=== PATIENT | male | born 1985 | race Hispanic/Latino ===

== ENCOUNTER 2017-12-29 19:57 | Emergency (ER) | payer OTHER ==
[2017-12-29] MEDS ORDERED: KETOROLAC TROMETHAMINE 60 MG/2 ML VIAL ONE (21:07)
[2017-12-29] MEDS ORDERED: DEXAMETHASONE SOD PHOSPHATE 10MG/ML 1ML VIAL ONE (21:07)
== END 2017-12-29 21:25 | disposition home or self-care (01) ==
LOC: EDH 19:57
DX: M54.5 Low back pain (principal); Z87.891 Personal history of nicotine dependence
CPT/HCPCS: 96372 ×2; 99284; J1100; J1885

== ENCOUNTER 2022-08-27 07:54 | Emergency (ER) | payer OTHER ==
[~2022-08-27] VITALS: Ht 170.2 cm; Wt 176.9 kg
[2022-08-27 08:40] VITALS: BP 165/99
== END 2022-08-27 08:42 | disposition home or self-care (01) ==
LOC: EDH 07:54
DX: T16.1XXA Foreign body in right ear, initial encounter (principal); X58.XXXA Exposure to other specified factors, initial encounter; Y93.89 Activity, other specified; Y92.89 Other specified places as the place of occurrence of the external cause; Y99.8 Other external cause status

== ENCOUNTER 2025-10-27 05:54 | Emergency (ER) | payer BC, OTHER ==
[~2025-10-27] VITALS: Ht 170.2 cm; Wt 289.4 kg
--- NOTE | 2025-10-27 06:10 | ERN ---
ED Note History of Present Illness Stated Complaint: LEFT LEG PAIN, HX OF SCIATICA Chief Complaint: Knee Injury/Swelling Time Seen by MD: 05:57 Dictation: Patient is a 40-year-old male morbid obesity with a past medical history of sciatic pain, today presented to the ER complaining of left buttock pain radiating to the left foot. Patient stated that he had similar pains before, has not seen a physician for that. He has been trying to lose weight as well and do stretches at home. Allergies: Coded Allergies: No Known Allergies (Unverified Allergy, Unknown, 08/27/22) Home Meds Active Scripts Acetaminophen (Tylenol) 325 Mg Tablet, 1-2 TAB PO QIDP PRN for pain or fever for 7 Days, #40 TAB 0 Refills Prov:TING FERNANDEZ MD 10/27/25 Ibuprofen (Ibuprofen) 600 Mg Tablet, 600 MG PO Q6H PRN for PAIN, #40 TAB Prov:TING FERNANDEZ MD 10/27/25 Past Medical History Past Medical History: No Pertinent History Surgical History: None Family History: Negative Social History: Negative, Lives with family Review of System Dictation NEGATIVE EXCEPT PER HPI Constitutional: Negative for fever,chills, and weight loss Eyes: Negative for injury, pain,redness, and discharge ENT: Negative for injury,pain or swelling Cardiovascular: denies chest pain, palpitations, and edema Respiratory: Negative for shortness of breath, cough, and wheezing, Abdomen/GI: Negative for abdominal pain, nausea, vomiting, diarrhea, and constipation Back: Negative for injury and pain : Negative for injury, bleeding and discharge MS/Extremity: Left buttock pain radiating to the left foot. Skin: Negative for rash, and discoloration Neuro: Negative for headache, weakness, numbness, tingling, and seizure Psych: Negative for suicide ideation, homicidal ideation, and hallucinations Initial Vital Sign VS Vital Signs Date Time Temp Pulse Resp B/P (MAP) Pulse Ox O2 Delivery O2 Flow Rate FiO2 10/27/25 06:05 97.5 88 20 205/136 100 Room Air* 0 21 Physical Exam Dictation General: awake, alert, NAD Head/Face: Normocephalic, atraumatic Eyes: PERRL, EOMI, vision at baseline ENT: oral cavity clear, TMs clear, no signs of infection Neck: Trachea midline, supple, no nuchal rigidity Cardiovascular: RRR, normal S1/S2, No MRGs, no JVD Respiratory: CTAB, no respiratory distress, No rales or wheezes Abdomen: Soft , no tender Skin: Warm, dry, normal turgor, no rash MS/Extremity: Pulses equal, no cyanosis, neurovascular intact, decreased range of motion of left leg due to pain. Neuro: COAx4, GCS 15, strength 5/5, CN 2-12 intact, normal cerebellar exam, normal gait, Psych: Normal behavior, mood, and affect normal Results (Laboratory/Radiology) Laboratory/Radiology Laboratory Tests Test 10/27/25 06:50 Sodium Level 136 mmol/L (136-145) Potassium Level 3.8 mmol/L (3.5-5.1) Chloride Level 100 mmol/L (101-111) L Carbon Dioxide Level 24 mmol/L (21-32) Blood Urea Nitrogen 12 mg/dL (7-18) Creatinine 1.0 mg/dL (0.5-1.3) Glomerular Filtration Rate Calc 98 mL/min (>90) Random Glucose 259 mg/dL (70-105) H Total Calcium 8.3 mg/dL (8.5-10.1) L Labs Reviewed?: Yes ED Course ED Course Orders Procedure Category Date Status Time Ketorolac PHA 10/27/25 Complete Tromethamine 30mg/Ml 06:30 Acetaminophen 325 Tab PHA 10/27/25 Complete (Tylenol 325mg Tab 06:30 Basic Metabolic Panel LAB 10/27/25 Complete 06:44 Hydralazine 20mg Inj PHA 10/27/25 Complete (Apresoline 20mg In 07:00 Hydralazine 20mg Inj PHA 10/27/25 Complete (Apresoline 20mg In 07:30 Amlodipine 5 Mg Tab PHA 10/27/25 Complete (Norvasc 5mg Tab) 09:00 Current Medications Medications (Trade) Dose Ordered Sig/Talisha Route PRN Reason Start Time Stop Time Status Last Admin Dose Admin Acetaminophen (TYLenol 325MG TAB) 650 mg ONCE ONCE PO 10/27/25 06:30 10/27/25 06:31 DC 10/27/25 06:15 Amlodipine Besylate (NorvASC 5MG TAB) 5 mg ONCE ONCE PO 10/27/25 09:00 10/27/25 09:01 DC 10/27/25 08:54 Hydralazine HCl (APRESOLine 20MG INJ) 10 mg ONCE ONCE IV 10/27/25 07:00 10/27/25 07:01 DC 10/27/25 06:56 Hydralazine HCl (APRESOLine 20MG INJ) 15 mg ONCE ONCE IV 10/27/25 07:30 10/27/25 07:31 DC 10/27/25 08:16 Ketorolac Tromethamine (toRADol) 30 mg ONCE ONCE IM 10/27/25 06:30 10/27/25 06:31 DC 10/27/25 06:14 Vital Signs Date Time Temp Pulse Resp B/P (MAP) Pulse Ox O2 Delivery O2 Flow Rate FiO2 10/27/25 09:09 97.5 76 17 187/100 98 Room Air* 0 21 10/27/25 08:16 75 187/112 10/27/25 07:40 97.5 75 17 187/112 98 Room Air* 0 21 10/27/25 06:56 209/139 10/27/25 06:54 80 17 209/139 98 Room Air* 0 21 10/27/25 06:05 98.4 85 18 140/66 99 Room Air 0 10/27/25 06:05 97.5 88 20 205/136 100 Room Air* 0 21 Medical Decision Making MDM 40-year-old male who presented with a sciatic pain affecting the left lower extremity. His blood pressure on arrival was 205/136, patient was asymptomatic. Sciatic radiculopathy Uncontrolled blood pressure Ordered ketorolac IV Order Tylenol oral BMP ordered, hydralazine 10 mg IV ordered for BP control. Plan is to recheck blood pressure, as well as send the patient with the oral antihypertensive home with recommendation to close follow up with the PCP in next 24 hours. 7:10 a.m. assumed care of the patient. This is a 40-year-old extremely morbidly obese male who presented to the emerge ncy room with complaints of left gluteal and sciatic pain radiating to the left lower extremity. However his blood pressure was noted to be 205/136. Hydralazine was given as the 1st dose and BNP 7 was requested. Patient stated that he was diagnosed with hypertension on multiple occasions but no pills were given to him. Stated that he has been trying to take care of himself and trying to lose weight on his own and seem somewhat annoyed that I was raising a question of comorbidities. He denied any chest pain, PND orthopnea. He also denied any headache blurred vision slurred speech diplopia motor weakness or seizure activity 7:15 a.m. BNP 7 reviewed BUN and creatinine are 12 and 1.0 and his glucose is 259 8:15 a.m. blood pressure is 179/113. A 2nd dose of hydralazine 15 mg IV was requested. 8:45 a.m. patient received the 2nd dose and his blood pressure is 1 70s over 106. Patient denied any new complaints. A p.o. dose of amlodipine 5 mg given I will discharge him to follow up with his primary care physician nabeel to have routine health maintenance done including blood pressure and diabetes management. Previous outside records reviewed: Old ER visits. Risk of complication and/or morbidity or mortality of patient management: None Medications-Per medication reconciliation Need for hospitalization: Patient does not meet criteria for hospitalization. Need for emergency major/minor surgery: No There are no social concerns with this patient. Prescription drug management Prescriptions will include symptomatic care Patient's prior external medical records from other ER visits were reviewed by me as indicated. Prior testing and results from previous visits were reviewed. Prior tests were taken into account with medical decision making and resource utilization, independent historian/historians were used to obtain complete medical history. I independently interpreted the test that were performed, results were reviewed by me and considered findings on radiology if ordered. Medical management and examination interpretation discussions were had by me with other qualified healthcare professionals as indicated for the patient's care. Problem List Problem List: (1) Sciatic leg pain (2) Uncontrolled hypertension DX & DISP Disposition: Discharge Departure Impression: Primary Impression: Sciatic leg pain Additional Impression: Uncontrolled hypertension Condition: Stable Scripts Losartan Potassium (Losartan Potassium) 50 Mg Tablet 1 TAB PO DAILY for 10 Days, #10 TAB 0 Refills Prov: ELSA CERNA MD 10/27/25 Acetaminophen (Tylenol) 325 Mg Tablet 1-2 TAB PO QIDP PRN for pain or fever for 7 Days, #40 TAB 0 Refills Prov: TING FERNANDEZ MD 10/27/25 Ibuprofen (Ibuprofen) 600 Mg Tablet 600 MG PO Q6H PRN for PAIN, #40 TAB Prov: TING FERNANDEZ MD 10/27/25 Additional Instructions: RETURN TO ER FOR ANY ACUTE OR WORSENING SYMPTOMS. FOLLOW-UP IN 1-2 DAYS WITH PRIMARY PROVIDER FOR RECHECK OF TODAY'S SYMPTOMS. Recommended to see the primary care physician nabeel for comorbidities like hypertension as well as hyperglycemia management. I counseled him extensively on weight loss, diet and exercise and patient has been under the impression that he is doing extremely well trying to lose weight on his own and managing the blood pressure and comorbidities without medications. I educated him on multiple complications end-organ failure as well as related to the comorbidities of diabetes hypertension and possibly even hypercholesterolemia which has not been checked Patient is reticent to my recommendations and I explained to him as ER physicians we will not be able to monitor his comorbidities long-term and that any medications on a regular basis require monitoring by his primary care physician. He stated that his primary care physician is Braxton Root. 10:00 a.m. patient indicated that he called his primary care physician's office and he will see them nabeel I will send him home on losartan 50 mg daily for about 10 days and his primary care physician can decide on the appropriate medications and monitoring. Referrals: SELF,REFERRAL (PCP) BRAXTON ROOT MD, WAGNER J MD Oct 27, 2025 06:10 ELSA CERNA MD Oct 27, 2025 08:17
[2025-10-27] MEDS ORDERED: ACET-2247 PO (06:20)
[2025-10-27] MEDS ORDERED: IBUP-1492 PO (06:20)
--- NOTE | 2025-10-27 07:03 | NUR ---
REPORT GIVEN TO ELEUTERIO PRETTY AT THIS TIME
[2025-10-27 07:04] LABS: CREATININE 1.0 mg/dL (0.5-1.3); GLOMERULAR FILTR. RATE CALC 98.0 mL/min (>90); GLUCOSE,RANDOM 259.0 mg/dL (70-105); SODIUM SERUM 136.0 mmol/L (136-145); UREA NITROGEN, BLOOD 12.0 mg/dL (7-18)
[2025-10-27] MEDS: amLODIPine 5 MG TAB PO ONE (08:54)
[2025-10-27] MEDS ORDERED: LOSA50TA64 PO (09:57)
[2025-10-27 09:59] VITALS: BP 188/111; PULSE 74; RESP 17; TEMP 97.6; O2SAT 99
--- NOTE | 2025-10-27 10:16 | NUR ---
PT RECEIVED HIS DISCHARGE INFORMATION, EXCUSE AND PRESCRIPTIONS. EDUCATED HIM ON LOW SODIUM DIET AND BLOOD PRESSURE MONITORING.
== END 2025-10-27 10:16 | disposition home or self-care (01) ==
LOC: EDH 05:54
DX: M54.42 Lumbago with sciatica, left side (principal); I10 Essential (primary) hypertension; E66.01 Morbid (severe) obesity due to excess calories; Z68.45 Body mass index [BMI] 70 or greater, adult
CPT/HCPCS: 99284; 96374; 80048; 36415; 96372; 96376; J1885; J0360 ×2